=== PATIENT | female | born 1990 | race Caucasian/White ===

== ENCOUNTER 2020-09-18 20:31 | Inpatient (IN) ==
[2020-09-19] MEDS: Perphenazine 2 MG TABLET PO SCH ×2 (12:05→20:09)
[2020-09-19 14:42] LABS: Hepatitis B Surface Antigen Nonreactive (Nonreactive)
[2020-09-19 15:12] LABS: Hepatitis B Core IgM Nonreactive (Nonreactive)
[2020-09-19 15:14] LABS: Hepatitis A Antibody IgM Nonreactive (Nonreactive)
[2020-09-19 18:03] LABS: Hepatitis C Virus Antibody Reactive (Nonreactive)
[2020-09-19] MEDS: clonazePAM 0.5 MG TABLET PO PRN (20:09)
[2020-09-20] MEDS: Perphenazine 2 MG TABLET PO SCH ×2 (10:22→20:38)
[2020-09-20] MEDS ORDERED: Acetaminophen 325 MG TABLET PO PRN (19:25)
[2020-09-20] MEDS: clonazePAM 0.5 MG TABLET PO PRN (20:38)
[2020-09-21 09:29] VITALS: BP 108/69
[2020-09-21] MEDS: Perphenazine 2 MG TABLET PO SCH (09:30)
== END 2020-09-21 11:07 | disposition home or self-care (01) | DRG 566 ==
LOC: EMEROOARM 20:31 → 1ANU 23:34
PROVIDERS: ADMIT Psychiatry & Neurology Psychiatry; ATTEND Psychiatry & Neurology Psychiatry

== ENCOUNTER 2021-02-10 08:40 | Inpatient (IN) ==
[2021-02-10] MEDS ORDERED: Metoclopramide 10 MG/2 ML VIAL IVP PRN (09:03)
[2021-02-10] MEDS ORDERED: Ibuprofen 600 MG TABLET PO ONE (09:03)
[2021-02-10] MEDS ORDERED: Naloxone 0.4 MG/ML INJ IVP PRN (09:03)
[2021-02-10] MEDS ORDERED: Famotidine 20 MG/2 ML VIAL IVP PRN (09:03)
[2021-02-10 09:48] LABS: Basophils % 0.4 %; Eosinophils # 0.2 K/mcL (0.0-0.6); Eosinophils % 1.4 %; Immature Granulocytes % 0.8 % (0-4); Lymphocytes # 2.3 K/mcL (0.6-4.6); Lymphocytes % 20.6 %; Mean Corpuscular HGB Conc 33.3 g/dL (31.6-35.5); Mean Corpuscular Hemoglobin 30.4 pg (28.0-33.3); Mean Corpuscular Volume 91.2 fL (83.0-100.0); Mean Platelet Volume 9.3 fL (9.4-12.4); Monocytes # 0.7 K/mcL (0.0-1.3); Platelet Count 364 K/mcL (140-400); Red Blood Count 3.62 M/mcL (3.82-4.97); Red Cell Distribution Width 13.2 % (11.5-14.5); Segmented Neutrophils % 70.8 %; White Blood Count 11.3 K/mcL (4.3-11.1)
[2021-02-10] MEDS ORDERED: Benzocaine/Menthol 56 GM AEROSOL SPRAY TP PRN (10:25)
[2021-02-10] MEDS ORDERED: Oxytocin 20 units/ LR 1000 mL 20 UNIT/1,000 ML BAG IVC SCH (10:25)
[2021-02-10] MEDS: Acetaminophen 325 MG TABLET PO PRN ×2 (16:29→22:08)
[2021-02-10 18:39] LABS: Amphetamine Screen,Urine Negative ng/mL (Cutoff=1000); Barbiturate Screen,Urine Negative ng/mL (Cutoff=200); Benzodiazepines Screen,Urine Negative ng/mL (Cutoff=200); Cannabinoid Screen,Urine Negative ng/mL (Cutoff = 50); Cocaine Screen,Urine Negative ng/mL (Cutoff= 300); Opiate Screen,Urine Negative ng/mL (Cutoff=300); Phencyclidine Screen,Urine Negative ng/mL (Cutoff=25)
[2021-02-10] MEDS: Ibuprofen 600 MG TABLET PO PRN (20:11)
[2021-02-10] MEDS ORDERED: Perphenazine 2 MG TABLET PO SCH (21:00)
[2021-02-11] MEDS: Ibuprofen 600 MG TABLET PO PRN (02:35)
[2021-02-11 04:33] LABS: Basophils % 0.4 %; Eosinophils # 0.2 K/mcL (0.0-0.6); Eosinophils % 1.9 %; Hematocrit 29.3 % (35.3-44.9); Hemoglobin 9.8 g/dL (11.5-15.4); Immature Granulocytes % 0.7 % (0-4); Lymphocytes # 3.3 K/mcL (0.6-4.6); Lymphocytes % 30.7 %; Mean Corpuscular HGB Conc 33.4 g/dL (31.6-35.5); Mean Corpuscular Hemoglobin 30.2 pg (28.0-33.3); Mean Corpuscular Volume 90.4 fL (83.0-100.0); Mean Platelet Volume 9.9 fL (9.4-12.4); Monocytes # 0.8 K/mcL (0.0-1.3); Monocytes % 7.2 %; Neutrophils # 6.4 K/mcL (1.6-8.9); Platelet Count 381 K/mcL (140-400); Red Blood Count 3.24 M/mcL (3.82-4.97); Red Cell Distribution Width 13.2 % (11.5-14.5); Segmented Neutrophils % 59.1 %; White Blood Count 10.8 K/mcL (4.3-11.1)
[2021-02-11 07:26] VITALS: BP 117/69; PULSE 95; TEMP 98.9; O2SAT 97
[2021-02-11] MEDS: Acetaminophen 325 MG TABLET PO PRN (07:47)
[2021-02-11] MEDS ORDERED: Prenatal Vit/FA 1 EACH TABLET PO SCH (09:00)
[2021-02-11] MEDS ORDERED: Lidocaine/EPI 1:100k 1% 20 ML VIAL INFILT ONE ×2 (09:01→14:42)
[2021-02-11] MEDS ORDERED: Etonogestrel 68 MG IMPLANT IL ONE ×2 (09:01→14:39)
== END 2021-02-11 13:10 | disposition home or self-care (01) | DRG 955 ==
LOC: 1NENULAB 08:40 → 1NENUOBS 11:22
PROVIDERS: ADMIT Obstetrics & Gynecology; ATTEND Obstetrics & Gynecology